=== PATIENT | female | born 1945 | race Asian ===

== ENCOUNTER 2018-06-25 22:11 | Emergency (ER) | payer OTHER ==
[~2018-06-25] VITALS: Ht 154.9 cm; Wt 56.7 kg
[~2018-06-25 22:11] MED LIST: CAR250T PO; ENTA200T PO; GLIPPOW9; LISIPOW; METFORMIN; PRAM0.12 PO; SIMVISTATIN
[2018-06-25 23:17] LABS: Basophils # (auto) 0.1 uL; Eosinophils # (auto) 0.1 uL; Eosinophils % (auto) 1.4 % (0.0-7.0); Hematocrit 32.4 % (36.0-46.0); Hemoglobin 10.9 g/dL (12.2-16.2); Lymphocytes # (auto) 1.1 uL; Mean Corpuscular Hemoglobin 30.6 pg (28.0-32.0); Mean Corpuscular Hgb Conc. 33.6 g/dL (32.0-36.0); Mean Corpuscular Volume 90.9 fL (80.0-100.0); Monocytes # (auto) 0.5 uL; Monocytes % (auto) 8.4 % (0.0-12.0); Neutrophils # (auto) 3.9 uL; Neutrophils % (auto) 69.2 % (37.0-80.0); Nucleated Red Blood Cells % 0.1 %; Platelet Count (auto) 203 10^3/uL (140-450); Red Blood Cells 3.56 10^6/uL (4.0-5.20); Red Cell Distribution Width 12.7 % (11.8-14.3); White Blood Cell 5.6 10^3/uL (4.4-10.8)
[2018-06-25 23:37] LABS: Potassium 3.9 mmol/L (3.5-5.1)
[2018-06-25 23:50] LABS: BUN/Creatinine Ratio 32.6; Bilirubin, Total 0.6 mg/dL (0.2-1.0); Calcium 8.3 mg/dL (8.5-10.1); Total Protein 7.1 g/dL (6.4-8.2)
[2018-06-26 02:32] LABS: Urine Bacteria NONE SEEN /hpf (None Seen); Urine Blood Negative /uL (Negative); Urine Hyaline Cast FEW /lpf (0 - 2); Urine Specific Gravity 1.016 (1.001-1.035); Urine WBC 17 /hpf (0 - 5)
[2018-06-26] MEDS ORDERED: SODIUM CHLORIDE 0.9% 500 ML IV ONE (02:33)
[2018-06-26 02:37] LABS: Alcohol, Urine < 3.0 mg/dL (0-5); Amphetamine Screen, Urine NEGATIVE (NEGATIVE); Barbiturate Scree,Urine NEGATIVE (NEGATIVE); Benzodiazephine Screen, Urine NEGATIVE (NEGATIVE); Cannabinoid Screen, Urine NEGATIVE (NEGATIVE); Cocaine Screen, Urine NEGATIVE (NEGATIVE); Opiate Scree,Urine NEGATIVE (NEGATIVE); Phencyclidine Screen, Urine NEGATIVE (NEGATIVE)
[2018-06-26 03:27] LABS: Salicylate 9.9 mg/dL (2.8-20.0)
[2018-06-26 03:29] LABS: Acetaminophen < 2.0 ug/mL (10-30)
[2018-06-26] MEDS ORDERED: LEVOFLOXACIN 500MG 100 ML IV ONE (04:15)
[2018-06-26 10:34] VITALS: BP 150/78
== END 2018-06-26 10:35 | disposition home or self-care (01) ==
LOC: EDBD 22:11 → ER 22:17
DX: N39.0 Urinary tract infection, site not specified (principal); N28.9 Disorder of kidney and ureter, unspecified; R44.3 Hallucinations, unspecified; F32.9 Major depressive disorder, single episode, unspecified; F41.9 Anxiety disorder, unspecified; E11.9 Type 2 diabetes mellitus without complications; I10 Essential (primary) hypertension; E78.5 Hyperlipidemia, unspecified
CPT/HCPCS: 36415; 71046; 80053; 80307; 80320; 80329; 81001; 85025; 87086; 93005; 94761; 96365; 96366; 99284; J1956; J7030; 51701

== ENCOUNTER 2018-07-04 18:15 | Emergency (ER) | payer OTHER ==
[~2018-07-04] VITALS: Ht 152.4 cm; Wt 49.9 kg
[2018-07-04] MEDS ORDERED: MORPHINE SULF INJ 2 MG/ML SYRINGE 1ML IV ONE (18:45)
[2018-07-04] MEDS ORDERED: SODIUM CHLORIDE 0.9% 500 ML IV ONE (18:45)
[2018-07-04] MEDS ORDERED: LORazepam 2MG/ML-1ML VIAL ONE (18:47)
[2018-07-04] MEDS ORDERED: LORazepam 2MG/ML-1ML VIAL IV ONE (19:15)
[2018-07-04 20:03] LABS: Basophils # (auto) 0.1 uL; Eosinophils # (auto) 0 uL; Eosinophils % (auto) 0.1 % (0.0-7.0); Hematocrit 29.6 % (36.0-46.0); Hemoglobin 10.1 g/dL (12.2-16.2); Lymphocytes # (auto) 0.3 uL; Lymphocytes % (auto) 4.4 % (10.0-50.0); Mean Corpuscular Hemoglobin 31.2 pg (28.0-32.0); Mean Corpuscular Hgb Conc. 34.2 g/dL (32.0-36.0); Mean Corpuscular Volume 91.1 fL (80.0-100.0); Monocytes # (auto) 0.4 uL; Monocytes % (auto) 5.1 % (0.0-12.0); Neutrophils # (auto) 7.1 uL; Neutrophils % (auto) 89.4 % (37.0-80.0); Platelet Count (auto) 197 10^3/uL (140-450); Red Blood Cells 3.25 10^6/uL (4.0-5.20); Red Cell Distribution Width 13.2 % (11.8-14.3); White Blood Cell 7.9 10^3/uL (4.4-10.8)
[2018-07-04 20:14] LABS: INR 0.96 (0.9-1.15); Partial Thromboplastin Time 26.4 sec (23.78-33.04); Prothrombin Time 10.3 sec (9.27-12.13)
[2018-07-04 20:15] LABS: Alanine Aminotransferase 11 U/L (13-56); Albumin 4.1 g/dL (3.4-5.0); Anion Gap 10 (5-15); Aspartate Aminotransferase 57 U/L (15-37); BUN/Creatinine Ratio 28.5; Blood Urea Nitrogen 73 mg/dL (7-18); Calcium 8.3 mg/dL (8.5-10.1); Carbon Dioxide 14 mmol/L (21-32); Chloride 116 mmol/L (98-107); GFR African American 24 mL/min; GFR Non-African American 20 mL/min; Glucose 73 mg/dL (74-106); Potassium 4.8 mmol/L (3.5-5.1); Sodium 140 mmol/L (136-145)
[2018-07-04 20:20] LABS: Alkaline Phosphatase 70 U/L (45-117); Bilirubin, Total 0.6 mg/dL (0.2-1.0); Total Protein 7.2 g/dL (6.4-8.2)
[2018-07-04 21:02] LABS: Urine Bacteria NONE SEEN /hpf (None Seen); Urine Blood 1+ /uL (Negative); Urine Specific Gravity 1.019 (1.001-1.035); Urine WBC 3 /hpf (0 - 5)
[2018-07-04] MEDS ORDERED: SODIUM BICARBONATE 8.4 % INJ 50ML VIAL IV ONE (22:30)
[2018-07-04] MEDS ORDERED: DEXTROSE (25%) 10 ML SYRG IV ONE (22:30)
[2018-07-05] MEDS ORDERED: DEXTROSE (50%) 50ML SYRG IV ONE ×3 (00:30→06:30)
[2018-07-05 07:55] VITALS: BP 154/61
== END 2018-07-05 08:08 | disposition short-term general hospital (02) ==
LOC: EDBD 18:15 → ER 18:18
DX: R55 Syncope and collapse (principal); R51 Headache; M54.5 Low back pain; F41.9 Anxiety disorder, unspecified; R41.82 Altered mental status, unspecified; F03.90 Unspecified dementia, unspecified severity, without behavioral disturbance, psychotic disturbance, mood disturbance, and anxiety; E11.22 Type 2 diabetes mellitus with diabetic chronic kidney disease; I12.9 Hypertensive chronic kidney disease with stage 1 through stage 4 chronic kidney disease, or unspecified chronic kidney disease; N18.9 Chronic kidney disease, unspecified; E78.5 Hyperlipidemia, unspecified
CPT/HCPCS: 36415; 51702; 70450; 72125; 72131; 80053; 80320; 81001; 82140; 82962; 83880; 84484; 85025; 85610; 85730; 93005; 94761; 96361; 96374; 96375; 99285; J2060; J7040; J7042

== ENCOUNTER 2018-10-08 02:33 | Emergency (ER) | payer MEDICARE, OTHER ==
[~2018-10-08] VITALS: Ht 149.9 cm; Wt 56.7 kg
[2018-10-08] MEDS ORDERED: NEOMYCIN-BACITRACIN-POLYM UNITDOSE PKG TOP OINT TOP ONE (07:45)
[2018-10-08] MEDS ORDERED: TETANUS-DIPTH-ACEL PERTUSSIS 0.5ML SYRG IM ONE (07:45)
[2018-10-08 11:13] VITALS: BP 126/60
== END 2018-10-08 11:17 | disposition home or self-care (01) ==
LOC: EDBD 02:33 → ER 02:38
DX: S00.01XA Abrasion of scalp, initial encounter (principal); G20 Parkinson's disease; E11.22 Type 2 diabetes mellitus with diabetic chronic kidney disease; I12.9 Hypertensive chronic kidney disease with stage 1 through stage 4 chronic kidney disease, or unspecified chronic kidney disease; N18.9 Chronic kidney disease, unspecified; E78.5 Hyperlipidemia, unspecified; W01.0XXA Fall on same level from slipping, tripping and stumbling without subsequent striking against object, initial encounter; Y93.89 Activity, other specified; Y92.59 Other trade areas as the place of occurrence of the external cause; Y99.8 Other external cause status
CPT/HCPCS: 70450; 82962; 90471; 90715